=== PATIENT | male | born 1995 | race Asian ===

== ENCOUNTER 2022-10-06 15:32 | Inpatient (IN) | payer BC ==
[~2022-10-06] VITALS: Ht 167.6 cm; Wt 76.8 kg
[~2022-10-06 15:32] MED LIST: VECURONIUM BROMIDE 10 MG/VIAL IV ONE
[2022-10-06] MEDS ORDERED: LEVETIRACETAM 1000MG PREMIX 100 ML IV ONE (15:45)
[2022-10-06] MEDS ORDERED: ETOMIDATE 2MG/ML 10ML VIAL IV ONE (15:45)
[2022-10-06] MEDS ORDERED: MIDAZOLAM HCL 100 MG in DEXT 5% WATER 80 ML IV ONE (15:45)
[2022-10-06] MEDS ORDERED: ROCURONIUM BROMIDE 10MG/ML VIAL 5ML IV ONE (15:45)
[2022-10-06 16:03] LABS: CHLORIDE 101 mEq/L (98-107)
[2022-10-06 16:04] LABS: HEMATOCRIT. 50.6 % (42.0-52.0); HEMOGLOBIN. 16.1 g/dL (14.0-18.0); MEAN CORPUSCULAR HEMOGLOBIN 31.7 pg (28.0-32.0); MEAN CORPUSCULAR VOLUME 99.7 fL (80.0-94.0); MEAN PLATELET VOLUME 8.6 fl (7.4-10.4); PLATELET 320 x1000/uL (130-400); RED BLOOD CELL COUNT 5.07 mill/uL (4.7-6.1); RED CELL DISTRIBUTION WIDTH 13.6 % (11.6-14.6)
[2022-10-06 16:13] LABS: ETHANOL BLOOD < 10 mg/dL
[2022-10-06] MEDS ORDERED: MIDAZOLAM HCL 100 MG in SODIUM CHLORIDE 0.9% 80 ML IV PRN (16:30)
[2022-10-06] MEDS ORDERED: MIDAZOLAM HCL 100 MG in DEXT 5% WATER 80 ML IV SCH (16:30)
[2022-10-06 16:33] LABS: CLARITY URINE CLOUDY (CLEAR); COLOR URINE YELLOW (YELLOW); KETONES URINE TRACE (NEGATIVE); LEUKOCYTE ESTERASE URINE NEGATIVE (NEGATIVE); NITRITE URINE NEGATIVE (NEGATIVE); OCCULT BLOOD URINE 2+ (NEGATIVE); PH URINE 5.5 (4.5-8.0); PROTEIN URINE 3+ (NEGATIVE); SPECIFIC GRAVITY URINE 1.016 (1.005-1.030); UROBILINOGEN URINE 0.2 E.U./dL (0.2-1.0)
[2022-10-06 16:46] LABS: *AMPHETAMINES SCREEN URINE NEGATIVE (NEGATIVE); *BARBITURATES SCREEN URINE NEGATIVE (NEGATIVE); *BENZODIAZEPINES SCREEN URINE PRESUMTIVE POSITIVE (NEGATIVE); *COCAINE SCREEN URINE NEGATIVE (NEGATIVE); CANNABINOID URINE SCREEN PRESUMTIVE POSITIVE (NEGATIVE); METHADONE URINE SCREEN NEGATIVE (NEGATIVE); OPIATES URINE SCREEN NEGATIVE (NEGATIVE); PHENCYCLIDINE URINE SCREEN NEGATIVE (NEGATIVE)
[2022-10-06 17:26] LABS: PLATELET ESTIMATE NORMAL
[2022-10-06] MEDS ORDERED: PROPOFOL 10MG/ML 100ML 100 ML IV ONE (17:30)
[2022-10-06 18:02] LABS: BG BASE EXCESS -8.7 mmol/L (-2.0-2.0); BG CARBOXYHEMOGLOBIN 0.3 % (0.5-1.5); BG DEOXYHEMOGLOBIN 0.6 % (0.0-5.0); BG HCO3 ACT 16.5 mmol/L (22.0-26.0); BG METHEMOGLOBIN 0.2 % (0.0-1.5); BG OXYGEN SATURATION 99.4 % (92.0-98.5); BG OXYHEMOGLOBIN 98.9 % (94.0-97.0); BG PCO2 33.9 mmHg (35.0-45.0); BG PH 7.305 (7.350-7.450); BG SAMPLE SITE RIGHT RADIAL; BG TOTAL HEMOGLOBIN 16.3 g/dL (12.0-18.0); BG VENT MODE VENT - AC
[2022-10-06 19:53] LABS: CREATINE KINASE 435 IU/L (39-308)
[2022-10-06 20:42] LABS: BG BASE EXCESS -3.7 mmol/L (-2.0-2.0); BG CARBOXYHEMOGLOBIN 0.4 % (0.5-1.5); BG DEOXYHEMOGLOBIN 0.1 % (0.0-5.0); BG FRACTION INSPIRED OXYGEN 100; BG HCO3 ACT 20.9 mmol/L (22.0-26.0); BG METHEMOGLOBIN 0.6 % (0.0-1.5); BG OXYGEN SATURATION 99.9 % (92.0-98.5); BG OXYHEMOGLOBIN 98.9 % (94.0-97.0); BG PCO2 36.8 mmHg (35.0-45.0); BG PH 7.372 (7.350-7.450); BG PO2 462.9 mmHg (75.0-100.0); BG SAMPLE SITE RIGHT RADIAL; BG TOTAL HEMOGLOBIN 16.3 g/dL (12.0-18.0); BG VENT MODE VENT - AC
[2022-10-06] MEDS ORDERED: LORAZEPAM 2MG/ML CPJ IV PRN (22:30)
[2022-10-06] MEDS ORDERED: LEVETIRACETAM 1,000 MG in SODIUM CHLORIDE 0.9% 100 ML IV SCH (22:30)
[2022-10-06 23:00] VITALS: BP 128/75
[2022-10-06] MEDS ORDERED: BLOOD SUGAR DIAGNOSTIC STRIP TEST SCH (23:00)
[2022-10-06 23:15] VITALS: BP 127/77
[2022-10-06] MEDS: PROPOFOL 10MG/ML 100ML 100 ML IV PRN (23:17)
[2022-10-06] MEDS: DEXT 5%/0.45% NACL 1000ML 1,000 ML IV SCH (23:18)
[2022-10-06 23:30] VITALS: BP 123/78
[2022-10-06] MEDS: CEFEPIME 1,000 MG in DEXTROSE 5% WATER 50 ML IV SCH (23:37)
[2022-10-06 23:45] VITALS: BP 124/76
[2022-10-06 23:51] VITALS: BP 124/76
[2022-10-07] VITALS (47 sets, daily range): BP systolic 52–147; BP diastolic 24–113
[2022-10-07] MEDS: BLOOD SUGAR DIAGNOSTIC STRIP TEST SCH ×2 (05:28→11:50)
[2022-10-07] MEDS: PROPOFOL 10MG/ML 100ML 100 ML IV PRN (05:29)
[2022-10-07 05:34] LABS: HEMATOCRIT. 43.2 % (42.0-52.0); HEMOGLOBIN. 14.8 g/dL (14.0-18.0); MEAN CORPUSCULAR HEMOGLOBIN 32.5 pg (28.0-32.0); MEAN CORPUSCULAR VOLUME 94.9 fL (80.0-94.0); PLATELET 211 x1000/uL (130-400); RED BLOOD CELL COUNT 4.55 mill/uL (4.7-6.1); RED CELL DISTRIBUTION WIDTH 13.2 % (11.6-14.6)
[2022-10-07] MEDS ORDERED: CEFEPIME HCL 1000MG/VIAL INJ IV SCH (06:00)
[2022-10-07] MEDS: CEFEPIME 1,000 MG in DEXTROSE 5% WATER 50 ML IV SCH ×2 (06:28→14:38)
[2022-10-07 07:29] LABS: PLATELET ESTIMATE NORMAL
[2022-10-07 08:39] LABS: BG BASE EXCESS -8.3 mmol/L (-2.0-2.0); BG CARBOXYHEMOGLOBIN 0.8 % (0.5-1.5); BG DEOXYHEMOGLOBIN 1.2 % (0.0-5.0); BG FRACTION INSPIRED OXYGEN 35; BG HCO3 ACT 15.2 mmol/L (22.0-26.0); BG METHEMOGLOBIN 0.5 % (0.0-1.5); BG OXYGEN SATURATION 98.8 % (92.0-98.5); BG OXYHEMOGLOBIN 97.5 % (94.0-97.0); BG PCO2 26.7 mmHg (35.0-45.0); BG PH 7.372 (7.350-7.450); BG PO2 142.2 mmHg (75.0-100.0); BG SAMPLE SITE RIGHT RADIAL; BG TOTAL HEMOGLOBIN 14.7 g/dL (12.0-18.0); BG VENT MODE VENT - CPAP
[2022-10-07] MEDS ORDERED: LEVETIRACETAM 1000MG PREMIX 100 ML IV SCH ×2 (09:00)
[2022-10-07] MEDS ORDERED: PANTOPRAZOLE SODIUM 40 MG/VIAL IV SCH (09:00)
[2022-10-07] MEDS: DEXT 5%/0.45% NACL 1000ML 1,000 ML IV SCH (09:06)
[2022-10-07] MEDS ORDERED: IPRATROPIUM/ALBUTEROL 0.5-3(2.5)MG/3ML NEB HHN PRN (09:15)
[2022-10-07] MEDS ORDERED: OXCARBAZEPINE 300MG TABLET PO SCH ×3 (14:00→21:00)
[2022-10-07] MEDS ORDERED: ACETAMINOPHEN 325MG TABLET PO PRN (14:00)
[2022-10-07] MEDS: IPRATROPIUM/ALBUTEROL 0.5-3(2.5)MG/3ML NEB HHN SCH ×2 (14:41→19:45)
[2022-10-07] MEDS ORDERED: LEVETIRACETAM 500MG TABLET PO SCH (19:30)
== END 2022-10-07 21:35 | disposition home or self-care (01) | DRG 100 ==
LOC: ER 15:32 → EDBEDREQ 17:03 → CVICU 19:14 → EDBEDREQ 19:22 → EDBEDREQTM 19:22
PROVIDERS: ADMIT Internal Medicine; ATTEND Internal Medicine
PROC: 5A1935Z Respiratory Ventilation, Less than 24 Consecutive Hours (ICD-10-PCS; principal; 2022-10-06)
PROC: 0BH17EZ Insertion of Endotracheal Airway into Trachea, Via Natural or Artificial Opening (ICD-10-PCS; 2022-10-06)
DX: G40.901 Epilepsy, unspecified, not intractable, with status epilepticus (principal); J96.01 Acute respiratory failure with hypoxia; M62.82 Rhabdomyolysis; N17.9 Acute kidney failure, unspecified; D72.829 Elevated white blood cell count, unspecified; Z20.822 Contact with and (suspected) exposure to COVID-19; R73.9 Hyperglycemia, unspecified; R74.01 Elevation of levels of liver transaminase levels; R74.8 Abnormal levels of other serum enzymes
CPT/HCPCS: 31500; 36415; 36600; 71045; 73610; 80048; 80053; 80305; 80320; 81003; 82375; 82550; 82805; 82962; 83036; 84478; 85025; 87070; 87426; 94002; 94003; 99291; C9113; C9803; J0692; J1953; J2250; J2704; J3490; J7060; A4315; G0480

== ENCOUNTER 2022-10-08 10:18 | Emergency (ER) | payer BC ==
[~2022-10-08] VITALS: Ht 170.2 cm; Wt 75.0 kg
[2022-10-08 10:26] VITALS: BP 152/89
[2022-10-08] MEDS ORDERED: IBUPROFEN 600MG TABLET PO ONE (16:45)
== END 2022-10-08 17:50 | disposition home or self-care (01) ==
LOC: ER 10:18
DX: L03.115 Cellulitis of right lower limb (principal)
CPT/HCPCS: 73590; 73610; 73630; 93971; 99284